=== PATIENT | female | born 1930 | race Caucasian/White ===

== ENCOUNTER 2016-08-05 04:34 | Emergency (ER) | payer MEDICARE ==
[2016-08-05 05:23] LABS: Hematocrit 39 % (35-47); Hemoglobin 13.1 g/dl (12.0-16.0); Mean Corpuscular HGB Conc 33 g/dl (31-36); Mean Corpuscular Hemoglobin 32 pg (27-31); Mean Corpuscular Volume 98 fL (80-97); Mean Platelet Volume 8 um3 (7.4-10.4); Red Blood Count 4.03 10^6/ul (4.0-5.4); Red Cell Distribution Width 14 % (10.5-15); White Blood Count 3.5 10^3/ul (3.5-10.8)
[2016-08-05 05:35] LABS: BUN/Creatinine Ratio 32.1 (8-20); Calcium 8.6 mg/dL (8.6-10.3); EGFR African American 89.6 (>60); EGFR Non-African American 69.7 (>60)
--- NOTE | 2016-08-05 05:43 | ED ---
Sarah Garcia Erika, scribed for Manan Henderson MD on 08/05/16 at 0511 . Throat Pain/Nasal Congestion - HPI Summary HPI Summary: An 86-year-old female presents to the ED with a CC of constant epistaxis [employer]. Pt reports the bleeding began suddenly around 04:00 today, and was not quickly alleviated by putting her head back or pinching the nose. Epistaxis resolved while in the waiting room. Pt reports that she has a humidifier at home which she uses. She reports she recently started taking Xarelto. - History of Current Complaint Chief Complaint: EDEpistaxis Time Seen by Provider: 08/05/16 05:02 Hx Obtained From: Patient, Family/Psychology Department Chair - Onset/Duration: Sudden Onset, Lasting Minutes, Resolved Severity: Moderate Cough: None - Allergies/Home Medications Allergies/Adverse Reactions: Allergies Allergy/AdvReac Type Severity Reaction Status Date / Time Meperidine [From Demerol HCl] Allergy NAUSEA AND Verified 07/09/16 15:12 DIZZINESS PMH/Surg Hx/FS Hx/Imm Hx Endocrine/Hematology History: Denies: Hx Diabetes, Hx Systemic Lupus Erythematosus Cardiovascular History: Denies: Hx Congestive Heart Failure, Hx Hypertension, Hx Pacemaker/ICD History: Denies: Hx Dialysis, Hx Renal Disease Musculoskeletal History: Denies: Hx Rheumatoid Arthritis Sensory History: Denies: Hx Hearing Aid Psychiatric History: Denies: Hx Panic Disorder - Cancer History Cancer Type, Location and Year: recent dx malignent neoplasm of anal canal Hx Chemotherapy: No Hx Radiation Therapy: No - Surgical History Surgery Procedure, Year, and Place: appenedctomy, hysterectomy. TONSILECTOMY ( A CHILD). CATARCTS Infectious Disease History: No Infectious Disease History: Denies: Traveled Outside the [place] in Last 30 Days - Family History Known Family History: Positive: Cardiac Disease, Renal Disease Family History: No FHx breast cancer - Social History Occupation: Retired Lives: With Family Alcohol Use: Occasionally Hx Substance Use: No Substance Use Type: Reports: None Hx Tobacco Use: No Smoking Status (MU): Never Smoked Tobacco Review of Systems Negative: Fever Positive: Epistaxis All Other Systems Reviewed And Are Negative: Yes Physical Exam Triage Information Reviewed: Yes Vital Signs On Initial Exam: Initial Vitals Temp Pulse Resp Pulse Ox 97.3 F 114 20 96 08/05/16 04:43 08/05/16 04:43 08/05/16 04:43 08/05/16 04:43 Vital Signs Reviewed: Yes Appearance: Positive: No Pain Distress, Thin Skin: Positive: Warm Eyes: Positive: DANNY ENT: Positive: Other - dry blood lt nares Neck: Positive: Supple Respiratory/Lung Sounds: Positive: Clear to Auscultation, Breath Sounds Present Cardiovascular: Positive: Normal Abdomen Description: Positive: Nontender, Soft Musculoskeletal: Positive: Strength/ROM Intact Neurological: Positive: Alert, Oriented to Person Place, Time Psychiatric: Positive: Normal Diagnostics - Vital Signs Vital Signs Temp Pulse Resp BP Pulse Ox 08/05/16 04:48 97.9 F 97 20 154/92 96 08/05/16 04:43 97.3 F 114 20 96 - Laboratory Lab Results: Lab Results 08/05/16 08/05/16 08/05/16 Range/Units 04:45 04:45 04:45 WBC 3.5 (3.5-10.8) 10^3/ul RBC 4.03 (4.0-5.4) 10^6/ul Hgb 13.1 (12.0-16.0) g/dl Hct 39 (35-47) % MCV 98 H (80-97) fL MCH 32 H (27-31) pg MCHC 33 (31-36) g/dl RDW 14 (10.5-15) % Plt Count 133 L (150-450) 10^3/ul MPV 8 (7.4-10.4) um3 Neut % (Auto) 73.6 (38-83) % Lymph % (Auto) 12.4 L (25-47) % Gillespie % (Auto) 10.5 H (1-9) % Eos % (Auto) 2.9 (0-6) % Baso % (Auto) 0.6 (0-2) % Absolute Neuts (auto) 2.6 (1.5-7.7) 10^3/ul Absolute Lymphs (auto) 0.4 L (1.0-4.8) 10^3/ul Absolute Monos (auto) 0.4 (0-0.8) 10^3/ul Absolute Eos (auto) 0.1 (0-0.6) 10^3/ul Absolute Basos (auto) 0 (0-0.2) 10^3/ul Absolute Nucleated RBC 0.01 10^3/ul Nucleated RBC % 0.2 INR (Anticoag Therapy) 1.72 H (0.89-1.11) Sodium 138 (133-145) mmol/L Potassium 4.0 (3.5-5.0) mmol/L Chloride 109 (101-111) mmol/L Carbon Dioxide 23 (22-32) mmol/L Anion Gap 6 (2-11) mmol/L BUN 25 H (6-24) mg/dL Creatinine 0.78 (0.51-0.95) mg/dL Est GFR ( Amer) 89.6 (>60) Est GFR (Non-Af Amer) 69.7 (>60) BUN/Creatinine Ratio 32.1 H (8-20) Glucose 101 H (70-100) mg/dL Calcium 8.6 (8.6-10.3) mg/dL Result Diagrams: 08/05/16 04:45 08/05/16 04:45 Lab Statement: Any lab studies that have been ordered have been reviewed, and results considered in the medical decision making process. - EKG 04:45 Cardiac Rate: NL - at 97 bpm EKG Rhythm: Atrial Fibrillation EKG Interpretation: Moderate ventricular response Re-Evaluation - Re-Evaluation First Eval Re-Evaluation Time: 05:44 Change: Improved Comment: Pt has no bleeding in the ED. Discussed lab results. Pt will be discharged home EENT Course/Dx - Course Assessment/Plan: An 86 y/o F presents to the ED with a CC of epistaxis. Bleeding has resolved by the time she reaches the room. Pt is observed with no more bleeding in the ED. Patient will be discharged with follow up from her PCP. - Diagnoses Provider Diagnoses: epistaxis, resolved Discharge - Discharge Plan Condition: Stable Disposition: HOME Patient Education Materials: Nosebleed (ED) Referrals: Javad Hoyt MD [Primary Care Provider] - The documentation as recorded by the Sarah watson Erika accurately reflects the service I personally performed and the decisions made by me, Manan Henderson MD.
[2016-08-05 06:32] VITALS: BP 157/94
== END 2016-08-05 05:55 | disposition home or self-care (01) ==
LOC: ED 04:34
DX: R04.0 Epistaxis (principal)
CPT/HCPCS: 36415; 80048; 85025; 85610; 93005; 99283

== ENCOUNTER 2017-06-22 07:51 | Emergency (ER) | payer MEDICARE ==
[2017-06-22] MEDS ORDERED: Ondansetron INJ* 2 MG/ML VIAL IV ONE (08:17)
[2017-06-22 08:39] LABS: Red Blood Count 4.13 10^6/ul (4.0-5.4)
[2017-06-22 08:41] LABS: Hematocrit 41 % (35-47); Hemoglobin 13.6 g/dl (12.0-16.0); Mean Corpuscular HGB Conc 33 g/dl (31-36); Mean Corpuscular Hemoglobin 33 pg (27-31); Mean Corpuscular Volume 99 fL (80-97); Mean Platelet Volume 7 um3 (7.4-10.4); Red Cell Distribution Width 13 % (10.5-15); White Blood Count 5.9 10^3/ul (3.5-10.8)
[2017-06-22 08:43] LABS: Comments Flag Yes
[2017-06-22 08:55] LABS: Albumin 3.6 g/dL (3.2-5.2); BUN/Creatinine Ratio 32.9 (8-20); C Reactive Protein 1.46 mg/L (< 5.00); Calcium 9.5 mg/dL (8.6-10.3); Globulin 2.9 g/dL (2-4); Potassium 4.1 mmol/L (3.5-5.0); Total Bilirubin 0.6 mg/dL (0.2-1.0); Total Protein 6.5 g/dL (6.4-8.9)
[2017-06-22 09:05] LABS: Urine Bacteria Absent (Absent)
[2017-06-22] MEDS ORDERED: Morphine INJ* 4 MG/ML 1 ML CARPUJECT ONE (09:18)
[2017-06-22] MEDS ORDERED: Morphine INJ* 4 MG/ML 1 ML CARPUJECT IV ONE (09:24)
--- NOTE | 2017-06-22 09:27 | RAD ---
HISTORY: Hematuria COMPARISONS: January 08, 2017 TECHNIQUE: Multiple transverse and longitudinal ultrasound images were obtained of the kidneys and bladder using grayscale and color Doppler imaging. FINDINGS: RIGHT KIDNEY: Simple cysts are noted. Again noted are multiple calyceal stones measuring up to 0.7 cm in size. There is moderate pelvocaliectasis. This is developed compared to the previous examination. The right kidney measures 12.1 x 5 x 5.5 cm. LEFT KIDNEY: A simple cyst is noted. Again noted are multiple calyceal stones, without hydronephrosis. The left kidney measures 11.3 x 4.4 x 4.4 cm. BLADDER: The bladder is partially distended. Ureteral jets are not identified. AORTA AND IVC: No images are submitted of the vasculature. RETROPERITONEUM: Unremarkable. OTHER: None. IMPRESSION: BILATERAL NEPHROLITHIASIS WITH RIGHT HYDRONEPHROSIS
[2017-06-22] MEDS ORDERED: NS 0.9% 1000 ML* 2,000 ML IV ONE (10:37)
[2017-06-22] MEDS ORDERED: Metoprolol Tartrate TAB* 25 MG PO ONE ×2 (11:40)
--- NOTE | 2017-06-22 11:43 | RAD ---
Indication: Right flank pain. CT of the abdomen and pelvis was performed without oral or IV contrast administration. Coronal and sagittal reconstructed images were obtained. There is right hydronephrosis and hydroureter. There is a calculus right at the right ureterovesicular junction measuring 3 mm. Right hydronephrosis is noted. Other nonobstructing calculi are noted in the right renal collecting system. Microcalcifications are noted in the left renal collecting system with no evidence of hydronephrosis. Lung bases demonstrate emphysematous changes. There is cardiomegaly. Small pericardial effusion is noted. Liver is normal in size. No focal lesions or intrahepatic ductal dilatation is noted. The gallbladder is distended. No pericholecystic fluid or wall thickening is noted. Common duct is not dilated. The pancreas demonstrates no mass or pancreatic duct dilatation. The spleen is normal in size. No adrenal lesions are noted. Atherosclerotic aorta is noted. No hernias are identified. Beginning bladder is otherwise unremarkable. IMPRESSION: 3 mm calculi in the distal right ureter just above the ureterovesicular junction with moderate degree of right hydronephrosis and hydroureter. Multiple nonobstructing calculi are noted. Cardiomegaly with small pericardial effusion noted. Atherosclerotic aorta is noted.
[2017-06-22 12:46] VITALS: BP 157/95
--- NOTE | 2017-06-23 08:34 | ED ---
Sandeep Garcia Angela, scribed for Bg Lima MD on 06/22/17 at 0819 . Complex/Multi-Sys Presentation - HPI Summary HPI Summary: This pt is a 87 y/o female presenting to [facility] c/o vomiting for the last 3 hours. Pt notes she is getting over bronchitis and has a post nasal drip. She reports vomiting bile and phlegm. Pt also states having a productive cough with yellow phlegm and hematuria (that began this morning). She states taking antibiotics for 1 week for bronchitis. PMHx includes atrial fibrillation and malignant neoplasm of anal canal. Pt is currently anticoagulated on Xarelto. Pt has not seen a urologist in the past. - History Of Current Complaint Chief Complaint: EDGeneral Time Seen by Provider: 06/22/17 08:04 Hx Obtained From: Patient Onset/Duration: Lasting Hours, Still Present Timing: Hours Associated Signs And Symptoms: Positive: Cough, Vomiting, Other - hematuria - Allergies/Home Medications Allergies/Adverse Reactions: Allergies Allergy/AdvReac Type Severity Reaction Status Date / Time Meperidine [From Demerol HCl] Allergy NAUSEA AND Verified 07/09/16 15:12 DIZZINESS Home Medications: Home Medications Cholecalciferol TAB* [Vitamin D TAB*] 1,000 unit PO DAILY 06/22/17 [History Confirmed 06/22/17] Metoprolol Tartrate TAB* [Lopressor TAB*] 12.5 mg PO QAM 06/22/17 [History Confirmed 06/22/17] Metoprolol Tartrate TAB* [Lopressor TAB*] 37.5 mg PO QPM 06/22/17 [History Confirmed 06/22/17] Rivaroxaban TAB(*) [Xarelto 20 mg] 20 mg PO QPM 06/22/17 [History Confirmed ] PMH/Surg Hx/FS Hx/Imm Hx Endocrine/Hematology History: Reports: Hx Anticoagulant Therapy Denies: Hx Diabetes, Hx Systemic Lupus Erythematosus Cardiovascular History: Denies: Hx Congestive Heart Failure, Hx Hypertension, Hx Pacemaker/ICD History: Denies: Hx Dialysis, Hx Renal Disease Musculoskeletal History: Denies: Hx Rheumatoid Arthritis Sensory History: Denies: Hx Hearing Aid Psychiatric History: Denies: Hx Panic Disorder - Cancer History Cancer Type, Location and Year: recent dx malignent neoplasm of anal canal Hx Chemotherapy: No Hx Radiation Therapy: No - Surgical History Surgery Procedure, Year, and Place: appenedctomy, hysterectomy. TONSILECTOMY ( A CHILD). CATARCTS Infectious Disease History: No Infectious Disease History: Denies: Traveled Outside the [place] in Last 30 Days - Family History Known Family History: Positive: Cardiac Disease, Renal Disease Family History: No FHx breast cancer - Social History Alcohol Use: Occasionally Hx Substance Use: No Substance Use Type: Reports: None Hx Tobacco Use: No Smoking Status (MU): Never Smoked Tobacco Review of Systems Negative: Fever, Chills Positive: Cough Positive: Vomiting Positive: hematuria Skin: Negative Neurological: Negative All Other Systems Reviewed And Are Negative: Yes Physical Exam - Summary Physical Exam Summary: VITAL SIGNS: Reviewed. GENERAL: Patient is an elderly fragile female who is lying comfortable in the stretcher. Patient is not in any acute respiratory distress. HEAD AND FACE: No signs of trauma. No ecchymosis, hematomas or skull depressions. No sinus tenderness. EYES: PERRLA, EOMI x 2, No injected conjunctiva, no nystagmus. EARS: Hearing grossly intact. Ear canals and tympanic membranes are within normal limits. MOUTH: Oropharynx within normal limits. NECK: Supple, trachea is midline, no adenopathy, no JVD, no carotid bruit, no c- spine tenderness, neck with full ROM. CHEST: Symmetric, no tenderness at palpation LUNGS: There are bilateral crackles in the bases of the lungs. CVS: Regular rate and rhythm, S1 and S2 present, no murmurs or gallops appreciated. ABDOMEN: Soft, non-tender. No signs of distention. No rebound no guarding, and no masses palpated. Bowel sounds are normal. EXTREMITIES: FROM in all major joints, no edema, no cyanosis or clubbing. NEURO: Alert and oriented x 3. No acute neurological deficits. Speech is normal and follows commands. SKIN: Dry and warm Triage Information Reviewed: Yes Vital Signs On Initial Exam: Initial Vitals Temp Pulse Resp BP Pulse Ox 97.3 F 103 18 189/115 93 06/22/17 07:54 06/22/17 07:54 06/22/17 07:54 06/22/17 07:54 06/22/17 07:54 Vital Signs Reviewed: Yes Diagnostics - Vital Signs Vital Signs Temp Pulse Resp BP Pulse Ox 06/22/17 07:54 97.3 F 103 18 189/115 93 - Laboratory Result Diagrams: 06/22/17 08:22 06/22/17 08:22 Lab Statement: Any lab studies that have been ordered have been reviewed, and results considered in the medical decision making process. - CT Abdomen/Pelvis CT CT Interpretation: Positive (See Comments) - IMPRESSION: 3 mm calculi in the distal right ureter just above the ureterovesicular junction with moderate degree of right hydronephrosis and hydroureter. Multiple nonobstructing calculi are noted. Cardiomegaly with small pericardial effusion noted. Atherosclerotic aorta is noted. ED physician has reviewed this radiology report and agrees. CT Interpretation Completed By: Radiologist - Ultrasound No standard instances Ultrasound Interpretation: Positive (See Comments) - Renal US IMPRESSION: Bilateral nephrolithiasis with right hydronephrosis. ED physician has reviewed this radiology report and agrees. Ultrasound Interpretation Completed By: Radiologist - EKG 0842 Cardiac Rate: NL EKG Rhythm: Atrial Fibrillation - at 99 bpm EKG Interpretation: No ST elevation EKG Comparison: No Significant Change - similar to previous EKG on 08/05/16. Complex Multi-Symp Course/Dx Assessment/Plan: This pt is a 87 y/o female presenting to [facility] c/o vomiting for the last 3 hours. Pt notes she is getting over bronchitis and has a post nasal drip. She reports vomiting bile and phlegm. Pt also states having a productive cough with yellow phlegm and hematuria (that began this morning). She states taking antibiotics for 1 week for bronchitis. PMHx includes atrial fibrillation and malignant neoplasm of anal canal. Pt is currently anticoagulated on Xarelto. Pt has not seen a urologist in the past. Test results without any significant abnormalities except for INR of 1.74, glucose of 137, and alexander hematuria. Renal US shows bilateral nephrolithiasis with right hydronephrosis. I discussed the test results and findings with Dr. Verdugo , who recommends an abd/pel CT and call him back with the reports. The abdomen/ pelvis CT shows 3 mm calculi in the distal right ureter just above the ureterovesicular junction with moderate degree of right hydronephrosis and hydroureter. Multiple nonobstructing calculi are noted. Cardiomegaly with small pericardial effusion noted. Atherosclerotic aorta is noted. I discussed the test results and findings with Dr. Verdugo, and he recommends for the pt to be discharged home and follow up at his office tomorrow. I discussed the test results, findings, and plan with the pt. She is comfortable going home and following up with Dr. Verdugo tomorrow in his office. Pt is hemodynamically stable, alert and oriented x3. - Diagnoses Provider Diagnoses: Hematuria, Nausea, Ureterolithiasis - Physician Notifications Discussed Care Of Patient With: Vladimir Verdugo Time Discussed With Above Provider: 12:16 Instructed by Provider To: Other - I discussed pt care with Dr. Verdugo, who has recommended to stop Eliquis for 2 days and follow up as outpatient in his offce. Discharge - Discharge Plan Condition: Stable Disposition: HOME Prescriptions: HYDROcodone/ACETAMIN 5-325 MG* [[place] 5-325 TAB*] 1 tab PO Q6H PRN #12 tab MDD 4 PRN Reason: Pain Ondansetron TAB* [Zofran 4 MG Tab*] 4 mg PO Q6H PRN #10 tab PRN Reason: Vomiting Patient Education Materials: Kidney Stones (ED), Acute Nausea and Vomiting (ED) , Hematuria (ED) Referrals: Javad Hoyt MD [Primary Care Provider] - Vladimir Verdugo MD [Medical Doctor] - Additional Instructions: STOP taking Eliquis for 2 days. Follow up with Dr. Verdugo, urologist, in his office tomorrow. PLEASE RETURN TO THE ED FOR ANY WORSENING SYMPTOMS. The documentation as recorded by the Sandeep watson Angela accurately reflects the service I personally performed and the decisions made by me, Bg Lima MD.
== END 2017-06-22 13:06 | disposition home or self-care (01) ==
LOC: ED 07:51
DX: R31.9 Hematuria, unspecified (principal); R11.0 Nausea; N20.1 Calculus of ureter; J40 Bronchitis, not specified as acute or chronic; I48.91 Unspecified atrial fibrillation; Z79.01 Long term (current) use of anticoagulants; C21.0 Malignant neoplasm of anus, unspecified
CPT/HCPCS: 36415; 74176; 76775; 80053; 81003; 83690; 83880; 85025; 85610; 85730; 86140; 93005; 96360; 96374; 96375; 99283; J2270; J2405

== ENCOUNTER 2017-06-23 13:03 | Day surgery (SDC) | payer MEDICARE ==
[2017-06-23] MEDS ORDERED: Buffered Lidocaine 0.9% SYRIN* 5 ML/SYR SYRINGE ONE (13:26)
[2017-06-23] MEDS ORDERED: cefTRIAXone(*) 2 GM ADDV.VIAL IVPB ONE (13:26)
--- NOTE | 2017-06-23 13:31 | HP ---
CC: Dr. Javad Hoyt; Dr. Rico DATE OF ADMISSION: 06/23/2017. AGE: 87-year-old female. ADMITTING DIAGNOSES: 1. Right hydronephrosis. 2. Right ureteral calculi. PLANNED PROCEDURE: Right ureteroscopy, possible laser and stent insertion. SURGEON: Dr. Verdugo. HISTORY OF PRESENT ILLNESS: Bev Cote is an 87-year-old lady who was evaluated initially in [facility] emergency room for right flank pain, nausea and vomiting. Imaging revealed right hydronephrosis w ith multiple bilateral renal calculi and what appeared to be a calculus in the right ureter. She was sent home for conservative management, but was seen in my office on an urgent basis because of incre asing pain and vomiting, and was noted to have two obstructing calculi in the right distal ureter. S he was given the option of trying to continue conservative management, but because of the pain and vo miting would like to have the stones removed and is now being brought in for right ureteroscopy. PAST MEDICAL HISTORY: Significant for atrial fibrillation. PAST SURGICAL HISTORY: Significant for appendectomy, hysterectomy and tonsillectomy. MEDICATIONS ON ADMISSION: 1. Metoprolol 25 mg [id number] tablets in the morning and [id number] in the evening. 2. Xarelto 20 mg, currently on hold. ALLERGIES: DEMEROL (nausea). SMOKING HISTORY: She is a nonsmoker. REVIEW OF SYSTEMS: She denies any chest pain or shortness of breath. There is no history of diabete s mellitus or any other major systemic illness. PHYSICAL EXAMINATION GENERAL: Pleasant, elderly, uncomfortable-appearing lady. VITAL SIGNS: Blood pressure 102/64, heart rate 69 per minute, temperature 95, oxygen saturation 96 p ercent on room air. CARDIOVASCULAR: Regular irregular, S1, S2. LUNGS: Clear bilaterally. ABDOMEN: Soft with right flank tenderness. IMPRESSION: Zujlch-wgog-kzwf-old lady with moderate right hydronephrosis secondary to what appear t o be two calculi in the right distal ureter. PLAN: Planned procedure is right ureteroscopy, possible laser and stent insertion. [id number]/[facility] #: [id number]
[2017-06-23] MEDS ORDERED: Metoprolol Tartrate TAB* 25 MG PO ONE (14:00)
[2017-06-23] MEDS ORDERED: GENTAMICIN ADULT IVPB ONE (14:30)
[2017-06-23] MEDS ORDERED: NS 0.9% IVPB ONE (14:30)
[2017-06-23] MEDS ORDERED: Iohexol 180 (CONTRAST) 10 ML SDV IV ONE (15:43)
[2017-06-23] MEDS ORDERED: Ondansetron INJ* 2 MG/ML VIAL IV PRN (16:43)
[2017-06-23] MEDS ORDERED: Furosemide IV* 10 MG/ML 2 ML VIAL (20 MG) ONE (16:58)
[2017-06-23] MEDS ORDERED: Propofol* 10 MG/ML 20 ML BTL IV PUSH ONE (16:58)
[2017-06-23] MEDS ORDERED: Lidocaine 2% PF * 5 ML VIAL ONE (16:58)
--- NOTE | 2017-06-23 17:12 | RAD ---
CPT II Codes: 6045F INDICATION: Bilateral renal stones TECHNIQUE: Intraoperative fluoroscopy was provided during retrograde pyelography with right ureteral stent placement. FINDINGS: 7 spot films depict retrograde pyelogram revealing mild hydronephrosis followed by anatomic deployment of a right ureteral stent. Fluoroscopy time: 7 seconds IMPRESSION: As above.
[2017-06-23] MEDS ORDERED: fentaNYL* 50 MCG/ML 2 ML VIAL (100 MCG VIAL) ONE (17:22)
[2017-06-23] MEDS: fentaNYL* 50 MCG/ML 2 ML VIAL (100 MCG VIAL) IV PRN ×2 (17:25→18:02)
--- NOTE | 2017-06-23 20:06 | RAD ---
INDICATION: Right ureteral stent placement COMPARISON: Same day intraoperative fluoroscopy TECHNIQUE: Single AP view of the abdomen FINDINGS: The right ureteral stent is anatomically aligned in the AP view. Multiple renal calculi are again noted in the bilateral kidneys. IMPRESSION: ANATOMIC ALIGNMENT OF RIGHT URETERAL STENT.
[2017-06-23 23:11] VITALS: BP 140/76
--- NOTE | 2017-06-24 05:07 | OP ---
CC: Dr. Javad Hoyt; Dr. Rico * DATE OF OPERATION: 06/23/17 - [facility] DATE OF : [birth year] SURGEON: Vladimir Verdugo MD ANESTHESIOLOGIST: Ventura Hart MD ANESTHESIA: General. PRE-OP DIAGNOSES: 1. Gross hematuria. 2. Right hydronephrosis. 3. Right ureteral calculus. POST-OP DIAGNOSES: 1. Gross hematuria. 2. Right hydronephrosis. 3. Right ureteral calculus. 4. Bladder lesion. OPERATIVE PROCEDURE: 1. Cystoscopy, right retrograde pyelogram, right ureteroscopy and stone extraction, right pyeloscopy and stone extraction, and right stent insertion. 2. Excision biopsy of bladder lesion. INDICATIONS: Bev Cote is an 87-year-old lady with persistent right flank pain, vomiting, and gross hematuria secondary to a calculus in the right ureter. COMPLICATIONS: None. STENT USED: 6-Yemeni stent right ureter. POSTOPERATIVE CONDITION: Stable. OPERATIVE FINDINGS: 1. Moderately severe urethral stenosis. 2. 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 3. Right hydronephrosis with right ureteral and right renal calculi. DESCRIPTION OF PROCEDURE: After induction of general anesthesia, the patient was placed in dorsal lithotomy position, sequential compression devices were in place and functioning. Initial cystoscopy revealed fairly severe urethral stenosis. The bladder was examined, there is a small papillary lesion adjacent to the right orifice which was removed after completion of the ureteroscopy. Right retrograde pyelogram revealed right hydronephrosis. A 6-Yemeni semi- rigid ureteroscope was introduced and advanced into the ureter under direct vision. In the distal ureter, approximately 3-mm soft calculus was noted, this was engaged using a 3-pronged grasper and removed. It was fairly friable and broke up into multiple little fragments which were irrigated out. The ureteroscope was carefully advanced under direct vision and the renal pelvis was entered, in one of the calyces, a small calculus was noted to be adherent to the mucosa and this was carefully removed also. A 6-Yemeni stent was introduced and positioned under fluoroscopy with good proximal and distal positioning obtained. Next, attention was directed to the small bladder lesion. Using a biopsy forceps, this was completely excised and the area was cauterized using the electrocautery. H emostasis appeared satisfactory at the end of the procedure and Wilkes catheter was placed for temporary bladder drainage. The patient tolerated the procedure satisfactorily and was transferred back to the recovery area in stable condition. [id number]/[facility] #: [id number] MARICRUZ
== END 2017-06-23 18:55 | disposition home or self-care (01) ==
LOC: OR 13:03
PROVIDERS: ATTEND Urology
DX: N13.2 Hydronephrosis with renal and ureteral calculous obstruction (principal); R31.0 Gross hematuria; N32.9 Bladder disorder, unspecified; I48.91 Unspecified atrial fibrillation; Z79.01 Long term (current) use of anticoagulants; I10 Essential (primary) hypertension; Z95.1 Presence of aortocoronary bypass graft; I36.1 Nonrheumatic tricuspid (valve) insufficiency; Z85.528 Personal history of other malignant neoplasm of kidney
CPT/HCPCS: 74000; 74420; 88305; C1876; J0696; J1580; J1940; J2704; J3010

== ENCOUNTER 2017-07-05 09:50 | Day surgery (SDC) | payer MEDICARE ==
[~2017-07-05 09:50] MED LIST: Buffered Lidocaine 0.9% SYRIN* 5 ML/SYR SYRINGE INTRADERM ONE
[2017-07-05] MEDS ORDERED: Buffered Lidocaine 0.9% SYRIN* 5 ML/SYR SYRINGE ONE (10:18)
--- NOTE | 2017-07-05 10:29 | RAD ---
Indication: Urolithiasis. Preshock wave lithotripsy. Comparison: June 23, 2017 radiographs and June 22, 2017 CT. Technique: Supine view of the abdomen. Report: Unremarkable bowel gas pattern. Moderate stool in the colon without significant rectal distension. Typical partial obscuration of the renal fossa and course of the ureters by bowel contents Innumerable small 2 -- 3 mm bilateral renal stones. RIGHT ureteral stent remains in place. Peripheral vascular calcifications. 1.5 cm diameter peripheral eggshell pattern calcification corresponds with a intraparenchymal lesion at the spleen on CT. Costochondral calcifications. Unremarkable soft tissue contours. IMPRESSION: No significant change in innumerable bilateral small renal stones. RIGHT ureteral stent in place.
[2017-07-05] MEDS ORDERED: cefTRIAXone(*) 2 GM ADDV.VIAL IVPB ONE (11:40)
[2017-07-05] MEDS ORDERED: Midazolam* 1 MG/ML 2 ML VIAL (2 MG) ONE (11:50)
[2017-07-05] MEDS ORDERED: Famotidine IV* 10 MG/ML 2 ML (20 mg) ONE (12:09)
[2017-07-05] MEDS ORDERED: Lidocaine 2% PF * 5 ML VIAL ONE (12:17)
[2017-07-05] MEDS ORDERED: fentaNYL* 50 MCG/ML 2 ML VIAL (100 MCG VIAL) ONE (12:24)
[2017-07-05] MEDS ORDERED: DiMENhydriNATE IV* 50 MG/ML VIAL IV PUSH PRN (12:36)
[2017-07-05] MEDS ORDERED: fentaNYL* 50 MCG/ML 2 ML VIAL (100 MCG VIAL) IV PRN (12:36)
[2017-07-05] MEDS ORDERED: Ondansetron INJ* 2 MG/ML VIAL IV PRN (12:36)
[2017-07-05] MEDS ORDERED: Acetaminophen TAB* 325 MG PO PRN (12:36)
[2017-07-05] MEDS ORDERED: PROCHLORPERAZINE INJ 5 MG/ML 2 ML VIAL IV PRN (12:36)
[2017-07-05] MEDS ORDERED: Phenylephrine IV* 40 MCG/ML 10 ML SYRINGE ONE (12:39)
[2017-07-05 14:08] VITALS: BP 159/99
--- NOTE | 2017-07-06 02:23 | OP ---
DATE OF OPERATION: 07/05/17 - [facility] DATE OF : [birth year] SURGEON: Vladimir Verdugo MD ANESTHESIOLOGIST: Sangita Hartman MD ANESTHESIA: General. PRE-OP DIAGNOSIS: Right renal calculi. POST-OP DIAGNOSIS: Right renal calculi. OPERATIVE PROCEDURE: Shock wave lithotripsy of right renal calculi. INDICATIONS: Bev Cote is an 87-year-old lady who had undergone surgery for obstructing right ureteral calculus. At that time, she had been noted to have multiple right renal calculi and is now being brought in for lithotripsy. COMPLICATIONS: None. POSTOPERATIVE CONDITION: Stable. DESCRIPTION OF PROCEDURE: After induction of general anesthesia, the patient was placed on the lithotripsy table in supine. There was a cluster of calcifications close to the proximal loop of the right stent. Under fluoroscopy , these were identified and shock wave lithotripsy was commenced at a rate of 90 shocks per minute. A total of 750 shocks were delivered and distributed between these small calculi that were in the vicinity of the mid to lower pole area of the right kidney. The patient tolerated the procedure satisfactorily and was transferred back to the recovery area in stable condition. The plan is to see her in the office next week for right stent removal. [id number]/[facility] #: [id number] MTDD
== END 2017-07-05 14:26 | disposition home or self-care (01) ==
LOC: OR 09:50
PROVIDERS: ATTEND Urology
DX: N20.0 Calculus of kidney (principal); I48.91 Unspecified atrial fibrillation; Z79.01 Long term (current) use of anticoagulants; I10 Essential (primary) hypertension; Z85.048 Personal history of other malignant neoplasm of rectum, rectosigmoid junction, and anus
CPT/HCPCS: 74000; J0696; J2250; J3010